=== PATIENT | male | born 1995 | race Caucasian/White ===

== ENCOUNTER 2018-07-09 07:11 | Day surgery (SDC) | payer BC ==
[~2018-07-09] VITALS: Ht 177.8 cm; Wt 68.0 kg
--- NOTE | ~2018-07-09 | HP ---
PATIENT: GALLITO HERNÁNDEZ MEDICAL RECORD: [id number] ACCOUNT: [id number] LOCATION:[facility] : 96 ADMISSION DATE: 07/09/18 PCP: KAY MODI MD HISTORY AND PHYSICAL EXAMINATION HISTORY: Gallito is 23 years old and has chronic refractory problems with nasal obstruction. He has been admitted for septoplasty and bilateral inferior turbinate reduction. PAST MEDICAL HISTORY: Otherwise negative. PAST SURGICAL HISTORY: None. CURRENT MEDICATIONS: Leucovorin, Latuda, lithium. ALLERGIES: No known drug allergies. PHYSICAL EXAMINATION: GENERAL: Healthy appearing. FACE: Normal and symmetric. EYES: Sclerae and conjunctivae are normal. EARS: Canals and TMs are normal. NOSE: Severe septal deviation, large inferior turbinates. No masses or polyps. ORAL CAVITY AND OROPHARYNX: Tongue protrudes in midline. Pharynx is normal. NECK: No masses or adenopathy. CHEST: Clear. CARDIOVASCULAR: Regular rate and rhythm. No murmur. EXTREMITIES: Normal. IMPRESSION: Nasal obstruction refractory to medical management, septal deviation, bilateral inferior turbinate hypertrophy. PLAN: Septoplasty and bilateral inferior turbinate reduction. 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
--- NOTE | ~2018-07-09 | OP ---
PATIENT NAME: BYRON HERNÁNDEZ MEDICAL RECORD: [id number] :96 LOCATION:[facility] ADMISSION DATE: SURGEON: KAY DUBOSE MD DATE OF OPERATION: 07/09/2018 PREOPERATIVE DIAGNOSES: Nasal obstruction, septal deviation, and turbinate hypertrophy. POSTOPERATIVE DIAGNOSES: Nasal obstruction, septal deviation, and turbinate hypertrophy. PROCEDURES: Septoplasty and bilateral inferior turbinate reduction. SURGEON: Kay Dubose MD ANESTHESIA: General orotracheal. BLOOD LOSS: 2 cc. PACKING: Anderson splints bilaterally. COMPLICATIONS: None. DISPOSITION: Recovery, stable. PROCEDURE NOTE: He was brought to the operating room, placed in supine position, sedated and intubated by anesthesia. He had received a gram of Ancef preoperatively and his nose had been decongested with Afrin preoperatively. His nose was examined using headlight and nasal speculum. The septum, floor of the nose, and inferior turbinates were injected with a total of 1.5 cc of 1% lidocaine and 1:100,000 epinephrine. Two Afrin pledgets were placed in each side of the nose. He was positioned, prepped and draped in the usual fashion for nasal surgery. Then, the Afrin pledgets were removed. A left-sided [place] incision was made and ipsilateral mucoperichondrial flap was elevated. It had very sharp septal deflection to the left side with redundant cartilage rolled down to the floor of the nose on the left side as well. The redundant cartilage was trimmed off using caudal to make septum proper length to fit over the maxillary spine and then the bony cartilaginous junction was disarticulated. The septum fell back to the midline easily with some relaxing incisions. Some of the bony septal deviation was removed using scissors and a pickup to remove that bony spur. A pocket was developed in between medial portion of the lower lateral cartilage to put the septum back in the midline. Once this was completed, the septum was in midline. The inferior turbinates were medialized with a freer. A [place] was used to take down the inferior redundant portions of the turbinate and suction cautery on a setting of 25 was used to stop any bleeding. Then, they were both outfractured with a [place] elevator. The septum was straight and in midline. There was no bleeding. The [place] incision was closed with interrupted 3-0 chromic and the Anderson splints were placed bilaterally with some mupirocin ointment and sutured through the anterior membranous septum with 3-0 Prolene on a [place] needle. He was awakened, extubated, and transported to recovery in good condition. No complications. TRANSINT:[id number] Voice Confirmation ID: [id number] DOCUMENT ID: [id number] OPERATIVE REPORT [id number] BYRON HERNÁNDEZ ERIC MD at 1224 CC: [id number] DICTATION DATE: 07/09/18 1121 [employer] H[employer] WORKER: 07/09/18 1412 [facility] 07/09/18 [facility] [address] [place] [address]
[~2018-07-09 07:11] MED LIST: DESYREL50 MG PO
[2018-07-09] MEDS ORDERED: LITHIUM CARBON300 MG (08:43)
[2018-07-09] MEDS ORDERED: LEUCOVORIN CALC25 MG (08:44)
[2018-07-09] MEDS ORDERED: GABAPENTIN100 MG (08:44)
[2018-07-09] MEDS ORDERED: ZITHROMAX500 MG PO (08:45)
[2018-07-09] MEDS ORDERED: VITAMIN B-122500 MCG PO (08:45)
[2018-07-09] MEDS ORDERED: VITAMIN D5000 UNIT PO (08:45)
[2018-07-09] MEDS ORDERED: NAC600 MG (08:46)
[2018-07-09] MEDS ORDERED: CO Q-10100 MG PO (08:46)
[2018-07-09] MEDS ORDERED: KRILL OIL 1,001 EAC1 (08:47)
[2018-07-09] MEDS ORDERED: VALTREX1000 MG PO (08:47)
[2018-07-09 08:56] VITALS: BP 112/90; Ht 177.8 cm; Wt 68.0 kg
== END 2018-07-09 13:34 | disposition home or self-care (01) ==
LOC: D.OPS 07:11
DX: J34.2 Deviated nasal septum (principal); J34.3 Hypertrophy of nasal turbinates